=== PATIENT | female | born 1985 | race Caucasian/White ===

== ENCOUNTER 2020-09-10 14:17 | Emergency (ER) | payer OTHER ==
[~2020-09-10] VITALS: Ht 154.9 cm; Wt 77.1 kg
[~2020-09-10 14:17] MED LIST: SEROQUEL XR 30300 MG PO
[2020-09-10] MEDS ORDERED: DESYREL150 MG PO (14:26)
[2020-09-10] MEDS ORDERED: METHADONE10 MG/1 M2 (14:27)
[2020-09-10 15:58] LABS: ABSOLUTE NEUTROPHILS 2.1 thou/uL (1.4-8.2); BASOPHILS 0.4 % (0.0-2.0); EOSINOPHILS 4.5 % (0.0-3.0); HEMATOCRIT 34.7 % (37.0-47.0); HEMOGLOBIN 11.4 gm/dL (12.0-15.0); LYMPHOCYTES 46.4 % (24.0-44.0); MCH 25.7 pg (26.0-34.0); MCV 77.7 fL (80.0-100.0); MONOCYTES 5.7 % (1.0-8.0); PLATELET COUNT 199 thou/uL (150-400); RBC 4.46 mil/uL (4.20-5.00); RDW 15.5 % (10.5-14.5)
[2020-09-10 16:09] LABS: CALCIUM 8.5 mg/dL (8.5-10.1); CREATININE 0.7 mg/dL (0.6-1.0); POTASSIUM 4.4 mmol/L (3.5-5.1)
[2020-09-10 16:15] LABS: TOTAL BILIRUBIN 0.2 mg/dL (0.2-1.0)
[2020-09-10 17:10] LABS: URINE BILIRUBIN NEGATIVE (Negative); URINE BLOOD NEGATIVE (Negative); URINE CLARITY CLEAR; URINE COLOR YELLOW; URINE GLUCOSE-RANDOM* NEGATIVE (Negative); URINE KETONES NEGATIVE (Negative); URINE LEUKOCYTES-REFLEX NEGATIVE (Negative); URINE NITRITE-REFLEX NEGATIVE (Negative); URINE PROTEIN (DIPSTICK) NEGATIVE (Negative); URINE SPECIFIC GRAVITY 1.015 (1.005-1.035); URINE UROBILINOGEN 0.2 E.U./dl (0.2-1.0)
[2020-09-10 17:22] LABS: AMP/METHAMP Negative (Negative); BARBITURATES Negative (Negative); BENZODIAZEPINES POSITIVE (Negative); COCAINE Negative (Negative); METHADONE POSITIVE (Negative); OPIATES Negative (Negative); PCP Negative (Negative)
[2020-09-10] MEDS ORDERED: PREDNISONE 10 M10 MG PO (17:37)
[2020-09-10 17:58] VITALS: BP 123/77
== END 2020-09-10 17:58 | disposition home or self-care (01) ==
LOC: ER 14:17
PROVIDERS: Physician Assistant
DX: G43.909 Migraine, unspecified, not intractable, without status migrainosus (principal); G89.29 Other chronic pain; J45.909 Unspecified asthma, uncomplicated; G35 Multiple sclerosis; Z88.1 Allergy status to other antibiotic agents; Z88.8 Allergy status to other drugs, medicaments and biological substances; Z79.899 Other long term (current) drug therapy

== ENCOUNTER 2020-10-06 00:10 | Inpatient (IN) | payer OTHER ==
[~2020-10-06] VITALS: Ht 162.6 cm; Wt 77.1 kg
[2020-10-06] VITALS (10 sets, daily range): BP systolic 117–141; BP diastolic 55–75
[~2020-10-06 00:10] MED LIST changes: +DESYREL150 MG PO; +METHADONE10 MG/1 M2; +PREDNISONE 10 M10 MG PO
[2020-10-06 00:51] LABS: HEMATOCRIT 35.7 % (37.0-47.0); HEMOGLOBIN 11.9 gm/dL (12.0-15.0); MCH 26.5 pg (26.0-34.0); MCHC 33.4 g/dL (28.0-37.0); MCV 79.2 fL (80.0-100.0); RBC 4.51 mil/uL (4.20-5.00); RDW 16.4 % (10.5-14.5); WBC 8.4 thou/uL (4.0-11.0)
[2020-10-06 00:52] LABS: URINE BILIRUBIN NEGATIVE (Negative); URINE BLOOD NEGATIVE (Negative); URINE CLARITY CLEAR; URINE COLOR YELLOW; URINE GLUCOSE-RANDOM* NEGATIVE (Negative); URINE KETONES NEGATIVE (Negative); URINE LEUKOCYTES-REFLEX NEGATIVE (Negative); URINE NITRITE-REFLEX NEGATIVE (Negative); URINE PROTEIN (DIPSTICK) NEGATIVE (Negative); URINE SPECIFIC GRAVITY >= 1.030 (1.005-1.035); URINE UROBILINOGEN 0.2 E.U./dl (0.2-1.0)
[2020-10-06 01:01] LABS: AMP/METHAMP Negative (Negative); BARBITURATES Negative (Negative); BENZODIAZEPINES POSITIVE (Negative); COCAINE Negative (Negative); METHADONE POSITIVE (Negative); OPIATES Negative (Negative); PCP Negative (Negative)
[2020-10-06 01:03] LABS: ANION GAP 10 mmol/L (7-16); BUN 11 mg/dL (7-18); CALCIUM 8.1 mg/dL (8.5-10.1); CHLORIDE 104 mmol/L (98-107); CO2 25 mmol/L (21-32); CREATININE 0.9 mg/dL (0.6-1.0); GLUCOSE 126 mg/dL (74-106); POTASSIUM 3.5 mmol/L (3.5-5.1); SODIUM 139 mmol/L (136-145)
[2020-10-06 01:09] LABS: ALBUMIN 3.3 g/dL (3.4-5.0); SGOT 39 U/L (15-37); SGPT 56 U/L (30-65); TOTAL BILIRUBIN 0.2 mg/dL (0.2-1.0)
[2020-10-06 01:27] LABS: SALICYLATE < 2.8 mg/dL (2.8-20.0)
--- NOTE | 2020-10-06 07:23 | EKG ---
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
--- NOTE | 2020-10-06 17:20 | EKG ---
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 : 1985 Requested By: Jesus Johnson Order Number: [id number] MD: Eric Jane Measurements Intervals [place] Rate: 73 P: 9 MT: 147 QRS: 35 QRSD: 91 T: 46 QT: 452 QTc: 499 Interpretive Statements Sinus rhythm Baseline wander in lead(s) I,III,aVL Compared to ECG 10/06/2020 00:40:19 No significant changes Electronically Signed On 10-06-2020 17:20:10 CDT by Eric Jane [email or web address] <ELECTRONICALLY SIGNED> By: Eric Jane MD, [facility] 10/06/20 1720 1348 1348 Eric Jane MD, [facility] /EPI
[2020-10-07 03:45] VITALS: BP 132/63
[2020-10-07 07:40] VITALS: BP 130/71
[2020-10-07 11:05] VITALS: BP 111/75
[2020-10-07 15:10] VITALS: BP 114/67
[2020-10-07] MEDS ORDERED: KEPPRA 500 MG500 M1 PO ×2 (16:52→16:53)
[2020-10-07] MEDS ORDERED: ACETAMINOPHEN325 M1 PO (16:52)
== END 2020-10-07 17:49 | disposition home or self-care (01) | DRG 101 ==
LOC: ER 00:10 → EROBS 05:36 → 2N 05:51
PROVIDERS: Student in an Organized Health Care Education/Training Program; ADMIT Internal Medicine; ATTEND Internal Medicine
DX: G40.409 Other generalized epilepsy and epileptic syndromes, not intractable, without status epilepticus (principal); G35 Multiple sclerosis; J45.909 Unspecified asthma, uncomplicated; G43.909 Migraine, unspecified, not intractable, without status migrainosus; G89.4 Chronic pain syndrome; F32.9 Major depressive disorder, single episode, unspecified; Z88.1 Allergy status to other antibiotic agents; Z88.8 Allergy status to other drugs, medicaments and biological substances
CPT/HCPCS: 10081

== ENCOUNTER 2020-10-10 10:04 | Emergency (ER) | payer OTHER ==
[~2020-10-10] VITALS: Ht 154.9 cm; Wt 77.1 kg
[~2020-10-10 10:04] MED LIST changes: +ACETAMINOPHEN325 M1 PO; +KEPPRA 500 MG500 M1 PO
[2020-10-10 11:07] LABS: URINE BILIRUBIN NEGATIVE (Negative); URINE BLOOD TRACE (Negative); URINE CLARITY CLEAR; URINE COLOR YELLOW; URINE GLUCOSE-RANDOM* NEGATIVE (Negative); URINE KETONES NEGATIVE (Negative); URINE LEUKOCYTES-REFLEX NEGATIVE (Negative); URINE NITRITE-REFLEX NEGATIVE (Negative); URINE PROTEIN (DIPSTICK) NEGATIVE (Negative); URINE SPECIFIC GRAVITY >= 1.030 (1.005-1.035); URINE UROBILINOGEN 0.2 E.U./dl (0.2-1.0)
[2020-10-10 11:14] LABS: AMP/METHAMP Negative (Negative); BARBITURATES Negative (Negative); BENZODIAZEPINES POSITIVE (Negative); COCAINE Negative (Negative); METHADONE POSITIVE (Negative); OPIATES Negative (Negative); PCP Negative (Negative)
[2020-10-10 11:31] LABS: ABSOLUTE NEUTROPHILS 4.5 thou/uL (1.4-8.2); BASOPHILS 0.3 % (0.0-2.0); EOSINOPHILS 1.6 % (0.0-3.0); HEMATOCRIT 38.3 % (37.0-47.0); HEMOGLOBIN 12.3 gm/dL (12.0-15.0); LYMPHOCYTES 22.6 % (24.0-44.0); MCH 25.7 pg (26.0-34.0); MCHC 32.1 g/dL (28.0-37.0); MCV 80.1 fL (80.0-100.0); PLATELET COUNT 209 thou/uL (150-400); POLYS 68.5 % (36.0-66.0); RBC 4.79 mil/uL (4.20-5.00); RDW 16.8 % (10.5-14.5); WBC 6.5 thou/uL (4.0-11.0)
[2020-10-10 11:45] LABS: ANION GAP 12 mmol/L (7-16); BUN 20 mg/dL (7-18); CALCIUM 8.8 mg/dL (8.5-10.1); CHLORIDE 105 mmol/L (98-107); CO2 24 mmol/L (21-32); GLUCOSE 84 mg/dL (74-106); POTASSIUM 3.6 mmol/L (3.5-5.1); SODIUM 141 mmol/L (136-145)
[2020-10-10 11:55] LABS: ALBUMIN 3.4 g/dL (3.4-5.0); SGOT 26 U/L (15-37); SGPT 34 U/L (14-59); TOTAL BILIRUBIN 0.4 mg/dL (0.2-1.0); TOTAL PROTEIN 7.3 g/dL (6.4-8.2); TROPONIN-I <0.06 ng/mL (<0.06)
[2020-10-10 12:54] VITALS: BP 121/79
--- NOTE | 2020-10-10 15:07 | EKG ---
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
== END 2020-10-10 12:54 | disposition home or self-care (01) ==
LOC: ER 10:04
PROVIDERS: Nurse Practitioner
DX: R56.9 Unspecified convulsions (principal); R41.82 Altered mental status, unspecified; J45.909 Unspecified asthma, uncomplicated; F32.9 Major depressive disorder, single episode, unspecified; F25.9 Schizoaffective disorder, unspecified; Z79.899 Other long term (current) drug therapy; Z88.1 Allergy status to other antibiotic agents; Z88.8 Allergy status to other drugs, medicaments and biological substances